=== PATIENT | male | born 1940 | race Caucasian/White ===

== ENCOUNTER 2024-07-19 07:18 | Inpatient (IN) ==
--- NOTE | 2024-07-04 13:01 | Anesthesiology Consultation ---
Date of Service July 04, 2024 Assessment & Plan (1) Encounter for pre-operative examination: Chart Review Chart Review: Acceptable Risk for Surgery History Surgery Operation Date: 07/19/24 07:15 Proposed Procedures p Anorectal Exam Under Anesthesia, Hemorrhoidectomy - Helder Rivera DO, FACS Height/Weight Height: 5 ft 9 in Weight: 90.718 kg Allergies Allergy/AdvReac Type Severity Reaction Status Date / Time No Known Allergies Allergy Verified 07/01/24 13:37 Medications Home Medications Medication Instructions Recorded Confirmed Last Taken latanoprost 0.005 % eye drops 1 drp ophthalmic (eye) DAILY 06/22/23 07/01/24 Unknown timolol maleate 0.25 % eye drops 1 drp ophthalmic (eye) BID 06/22/23 07/01/24 Unknown hydrocortisone 2.5 % topical cream 1 applic [place] DAILY PRN hemorrhoids 03/03/24 07/01/24 Unknown with perineal applicator #30 grams hydrocortisone acetate 25 mg 25 mg [place] DAILY #24 ea 03/17/24 07/01/24 Unknown rectal suppository (Anusol-HC) Past Medical History Medical History (Updated 07/04/24 @ 13:01 by Ranjit Hull MD) Anemia Arthritis Glaucoma History of skin cancer ears and side of face AND RESECTED Past Family History Family History Father Myocardial infarction Heart disease Sister Colorectal cancer Mother Diabetes Hypertension Other Family history of diabetes mellitus in mother Denies family history of Ovarian cancer Prostate cancer Breast cancer Lung cancer Past Surgical History Surgical History Hx of bilateral cataract extraction History of hernia surgery Patient reports is was left groin, 5-8 years ago Social History Smoking Status: Current some day smoker tobacco type: cigars Smoking cigarettes per day: 1 CIGAR ON SUNDAYS- advised Do You Dip or Chew Tobacco: No Hx Alcohol Use: No Hx Substance Use: No substance use type: does not use Testing Laboratory Results Laboratory Tests 07/01/24 07:47 Hgb 8.4 L Plt Count 299 Potassium 3.7 Creatinine 0.93 Electrocardiogram Date: 07/01/24 Findings: + NSR @ (62)
--- NOTE | 2024-07-19 07:27 | History & Physical Bridge Note ---
Date of Service July 19, 2024 History & Physical Bridge Note I have examined the patient, reviewed the History & Physical and in the interval since the performance of the History & Physical I have noted the following changes of clinical significance: no changes noted
[2024-07-19] MEDS ORDERED: LIDOCAINE 2% 2 ML VIAL/AMP(20MG/ML) INFIL ONE (07:42)
[2024-07-19] MEDS ORDERED: PROPOFOL IV EMULSION 10 MG/ML 20 ML VIAL IV ONE (07:42)
[2024-07-19] MEDS ORDERED: fentaNYL citrate PF 100 MCG/2 ML VIAL ONE (07:42)
[2024-07-19] MEDS: LACTATED RINGER'S 1,000 ML IV SCH (08:02)
[2024-07-19] MEDS: cefOXitin 2,000 MG in DEXTROSE 5 % MINI-B 50 ML IV SCH (09:01)
[2024-07-19] MEDS ORDERED: ONDANSETRON INJ 2 MG/ML 2 ML VIAL IV PRN ×3 (09:24→12:13)
[2024-07-19] MEDS ORDERED: oxyCODONE HCL IR 5 MG TAB (IMMEDIATE RELEASE) PO PRN ×2 (09:24)
[2024-07-19] MEDS ORDERED: MoRPHine SULFATE 4 MG/ML 1 ML CARP\\VIAL IV PRN (09:24)
[2024-07-19] MEDS ORDERED: MoRPHine SULFATE 2 MG/ML CARP IV PRN (09:24)
[2024-07-19] MEDS ORDERED: ACETAMINOPHEN 325 MG TAB PO PRN ×2 (09:24→12:13)
[2024-07-19] MEDS ORDERED: ONDANSETRON INJ 2 MG/ML 2 ML VIAL ONE (09:36)
[2024-07-19] MEDS: LIDOCAINE 2% JELLY 5 ML TUBE EXT ONE (09:36)
[2024-07-19] MEDS: GELATIN SPONGE SZ 100 ONE (09:36)
[2024-07-19] MEDS: LIDOCAINE 1%/EPINEPHRINE 1:100,000 50 ML VIAL ONE (09:43)
[2024-07-19] MEDS: BUPIVACAINE LIPOSOME 1.3% 266 MG/20 ML VIAL ONE (09:43)
--- NOTE | 2024-07-19 09:51 | Operative Report ---
PG Post Operative Report Pre & Post Diagnosis Operation Date: 07/19/24 08:25 Pre-Op Diagnosis: Internal and External Thrombosed Hemorrhoids Post-Op Diagnosis: Internal and External Thrombosed Hemorrhoids, circumferential rectal mass I identified the patient and participated in the time-out.: Yes Procedure Operation Date: 07/19/24 08:25 Actual Procedures p Anorectal Exam Under Anesthesia(Not Applicable) - Helder Rivera DO, FACS Surgeon Helder Rivera DO, CHITO Basket Braider Urmila Beckett Estimated Blood Loss 5 Findings Consistent with Post-Op Diagnosis Large mixed internal and external hemorrhoid. Digital rectal exam revealed redundant and rectal tissue and hemorrhoids. Palpable mass just to the distal end of my finger, appears to be circumferential and low rectal. Unable to adequately visualize to get a biopsy. Specimens None Anesthesia Type General Complications none Disposition Accompanied Patient To Recovery: No Disposition: Recovery Room Indications 84-year-old male presented to the clinic with complaints of hemorrhoid. Given having constipation over the past several months progressively worsening. He had a visible mixed internal and external hemorrhoid on external exam but was unable to tolerate anoscopy due to pain. Plan for anorectal exam under anesthesia, hemorrhoidectomy. The risks of the procedure were discussed, all questions were answered, and the patient agreed to proceed with surgery as planned. Description of Procedure The patient was properly identified, consented, and taken to the operating room where he was placed in the supine position. General endotracheal anesthesia was induced. The patient was then placed in high lithotomy position. SCDs and a safety belt were placed. The patient's anus and buttocks were prepped and draped in the standard sterile fashion. Surgical timeout was performed and all parties were in agreement that this was the correct patient and procedure to be performed and we continued as planned. The external anal exam revealed a large mixed internal and external hemorrhoid on the right. Digital rectal exam revealed redundant anorectal tissue and hemorrhoidal tissue. At the distal end of my finger approximately 7 cm into the rectum, there was a palpable mass. This was firm and appeared to be circumferential. I was able to feel what appears to be the lumen of the colon which was quite narrow. Anoscope and bivalves were inserted and the exam revealed mixed internal and external hemorrhoids, worse on the right. At times I was able to partially visualize the mass but due to the significant redundant tissue was unable to clearly visualize it. I was unable to perform a biopsy. At this point surgery was ceased and Exparel was injected. Anesthesia was ceased, the patient was transferred to the PACU for recovery in stable condition. All sponge, instrument, needle counts were correct at the conclusion of the procedure. The patient tolerated the procedure well. The physicians educational program assistant was present and scrubbed for the entire the case. She was critical in positioning the patient, prepping and draping, retraction and exposure and placement of the dressings. I attest to the content of the Intraoperative Record and any orders documented therein. Any exceptions are noted below.
[2024-07-19] MEDS ORDERED: ePHEDrine sulfate 50 MG/ML AMP ONE (09:57)
--- NOTE | 2024-07-19 10:02 | Communication Note ---
Date of Service: July 19, 2024 Patient underwent anorectal exam under anesthesia for planned hemorrhoidectomy. During the exam there was a palpable circumferential firm mass in the mid to distal rectum. I was unable to visualize this or biopsy it. After discussion with the son, we agreed that the best course of action would be to admit him for the workup. Plan on admitting him to the medicine service, get a CT scan of his chest abdomen and pelvis with oral and IV contrast, and consult GI for colonoscopy in the next day or 2. Based on the location of this tumor he would likely need neoadjuvant chemoradiation, we will await the full workup. If he were to need surgery, as this is quite a low tumor, I would recommend colorectal surgery at a tertiary center. Surgery will follow
[2024-07-19] MEDS ORDERED: PROMETHAZINE HCL 6.25 MG in SODIUM CHLORIDE 0.9% 50 ML IV PRN (10:03)
[2024-07-19] MEDS ORDERED: ATROPINE SULFATE 0.1 MG/ML 10ML SYR IV PRN (10:03)
[2024-07-19] MEDS ORDERED: fentaNYL citrate PF 100 MCG/2 ML VIAL IV PRN (10:03)
[2024-07-19] MEDS ORDERED: HYDROmorphone INJ 2 MG/ML SYR/VIAL IV PRN (10:03)
[2024-07-19] MEDS ORDERED: ePHEDrine sulfate 50 MG/ML AMP IV PRN (10:03)
--- NOTE | 2024-07-19 11:13 | History & Physical Report ---
Date of Service July 19, 2024 Assessment & Plan (1) Rectal mass: Plan: 84yo male who presented today for elective rectal exam under anesthesia along with planned hemorrhoidectomy due to 6 months of bothersome rectal symptoms. During the exam today by Dr Rivera a firm rectal mass was palpated. Dr Rivera canceled the hemorrhoidectomy and advised hospital admission for work-up & Rx of the rectal mass. There is high likelihood that the rectal mass is rectal cancer. Patient has never had a colonoscopy. His sister had colon cancer ~5 years ago. Plan - * admit to med/surg * morphine prn for severe pain * anusol cream TID for hemorrhoids * lidocaine jelly prn adjunctive pain relief * clear liquid diet * consult GI - will need flex sig or full colonoscopy for diagnosis/biopsy; appreciate their assistance * CEA has been sent * CT chest/abd/pelvis with contrast ordered by gen surg team to look for distant mets/staging * will order basal fluids once BMP results are back (2) Microcytic anemia: Plan: hemoglobin was 8.4 in June 2024 MCV was microcytic in light of #1 likely has severe iron deficiency check Fe studies consider IV venofer while here recheck CBC for stability (3) Hemorrhoids: Plan: internal & external but has rectal mass on rectal exam under anesthesia today will order anusol cream TID and lidocaine jelly prn along with morphine for his severe rectal pain (4) Family history of colon cancer: Plan: sister (5) Glaucoma, bilateral: Plan: cont latanoprost drops to both eyes daily cont timolol drops to both eyes daily Plan DVT proph - SCDs for now; defer on chemical means due to BRBPR, anemia, and need for additional procedures care d/w Dr Rivera from [facility] d/w [facility] via [place] correspondence History of Present Illness Chief Complaint: rectal pain, BRBPR Primary Care Provider: Ranjit Barone, DO Very pleasant 84yo male with history of glaucoma & skin cancer of the face who presented for elective anorectal exam under anesthesia & hemorrhoidectomy today with Dr Mitchell Rivera. Patient reports he has had various rectal symptoms for about 6 months, then developed intermittent BRBPR and mucous via his rectum about 3-4 months ago. He states he has had mild rectal discomfort since 2023, and then within the last 2 weeks his pain has been so severe he could not sleep at night. Bowel movements have been irregular, and he has been taking an OTC stool softener to help with such. Bowel movements have been about every other day. He has a feeling of incomplete evacuation - "like something is stuck there" - following his bowel movements. In February 2024 he was seen by his PCP's office for hemorrhoids and was instructed to use anusol cream for such. In May 2024 he was then referred to general surgery for the hemorrhoids due to ongoing bothersome rectal symptoms. June [address] Rivera who palpated internal & external hemorrhoids and recommended the exam under anesthesia to evaluate for rectal ma ss/tumor and to treat the hemorrhoids. Patient denies any recent change in appetite. No weight loss. No nausea/emesis/dysphagia/abdominal pain. 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 During today's exam under anesthesia in preparation for hemorrhoidectomy Dr Rivera palpated a firm rectal mass in the mid to distal rectum but visualization was not possible for biopsy. His surgery was then canceled and Dr Rivera contacted our team to admit Mr Orourke for further work-up. Allergies Allergy/AdvReac Type Severity Reaction Status Date / Time No Known Allergies Allergy Verified 07/19/24 07:40 Home Medications Medication Instructions Recorded Confirmed Type latanoprost 0.005 % eye drops 1 drp ophthalmic (eye) DAILY 06/22/23 07/19/24 History timolol maleate 0.25 % eye drops 1 drp ophthalmic (eye) BID 06/22/23 07/19/24 History hydrocortisone 2.5 % topical cream 1 applic [place] DAILY PRN hemorrhoids 03/03/24 07/19/24 Rx with perineal applicator #30 grams hydrocortisone acetate 25 mg 25 mg [place] DAILY #24 ea 03/17/24 07/19/24 Rx rectal suppository (Anusol-HC) Past Med/Surg History Problem List (Updated 07/19/24 @ 11:23 by Hudson Duran MD) Microcytic anemia Glaucoma, bilateral Family history of colon cancer Hemorrhoids Rectal mass Rectal burning Medicare annual wellness visit, initial Medical History Internal and external thrombosed hemorrhoids Anemia Arthritis Glaucoma History of skin cancer ears and side of face AND RESECTED Surgical History Hx of bilateral cataract extraction History of hernia surgery Patient reports is was left groin, 5-8 years ago Family History Father Myocardial infarction Heart disease Sister Colorectal cancer Mother Diabetes Hypertension Other Family history of diabetes mellitus in mother Denies family history of Ovarian cancer Prostate cancer Breast cancer Lung cancer Social History (Updated 07/19/24 @ 11:17 by Hudson Duran MD) Smoking Status: Current some day smoker Tobacco Type: Cigars Age Started Using Tobacco: 20; Age Quit Using Tobacco: 40; Cigarettes Per Day: 1 CIGAR ON SUNDAYS- ; Second Hand Exposure: No; Do You Dip or Chew Tobacco: No; Hx Alcohol Use: No Hx Substance Use: No Preferred Language: Uzbek Communication Ability: Effective Visual Impairment: No Limitations Hearing Ability: Normal Mineralogy Professor Required: No Beliefs That Will Affect Care: None marital status: / Current Living Situation: Alone Current Living Situation Comment: 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 occupational status: retired current occupation: [employer] How many Children do You have: 1 How many Children do You have Comment: Had two children, one of MVA at 32 Feels Safe at Home: Yes Childhood Exposure to Second-Hand Smoke: No Diet: regular caffeine: Yes Dental Care, Regularly: No Physical Activity Frequency: Daily Physical Activity Frequency Comment: farm work Seatbelt Use: always Sunscreen Use: No Assistive Devices: Glasses Review of Systems Review of Systems: gen - no fevers or chills; good appetite; no recent weight loss eyes - no recent changes in vision HENT - no URI symptoms; no dysphagia CV - no chest pains or edema pulm - no dyspnea or MERRILL; no cough GI - no N/V/abd pain; see HPI for other GI symptoms - no LUTS musculo - denies specific joint pains endo - no diabetes neuro - no headaches; left arm paresthesias extending from just superior to L elbow to the L wrist region skin - no rash; he denies seeing pallor Physical Exam Physical Exam: gen - very pleasant, NAD, awake/alert eyes - PERRL, nonicteric sclera, lens implants b/l HENT - MM slightly dry neck - no obvious pathologic lymphadenopathy; anterior neck - either small submental lymph node vs cyst vs other heart - RRR, s1 s2, no murmur lungs - CTA b/l, no rales abd - soft NT ND BS+; no HSM rectal - deferred ext - no edema vascular - pulses b/l feet 2+ psych - a/o x 3 neuro - strength 5/5 x 4 exts; DTRs 2+ b/l upper & lower exts skin - no rash; generalized pallor Results & Data Results & Data Vital Signs (Past 12 Hours) Vital Signs Temp Pulse Pulse Resp BP Pulse Ox O2 Del Method 07/19/24 11:00 56 L 17 152/73 H 97 Room Air 07/19/24 10:45 36.4 C L 59 L 23 160/72 H 100 Room Air 07/19/24 10:30 59 L 23 148/69 H 96 Room Air 07/19/24 10:20 61 18 120/93 96 Room Air 07/19/24 10:10 77 17 121/69 100 Oxymask 07/19/24 10:00 54 L 13 113/58 L 100 Oxymask 07/19/24 09:54 36.6 C 52 L 14 111/61 99 Oxymask 07/19/24 07:44 36.6 C 63 20 166/68 H 97 Room Air O2 Flow Rate 07/19/24 11:00 07/19/24 10:45 07/19/24 10:30 07/19/24 10:20 07/19/24 10:10 6 07/19/24 10:00 6 07/19/24 09:54 6 07/19/24 07:44 Code Status & VTE Plan Code Status full code VTE Prophylaxis Plan VTE Prophylaxis will be ordered: Yes PG Care Time/CCT Total # of Minutes Spent Total Time Spent with Patient: Total time spent is greater than 50% in coordination of care (as documented) at patient's floor/unit and/or counseling patient: Coding Level of Care Code 77157 INT INP/OBS CARE 2/55MIN Diagnoses Rectal mass K62.89 Microcytic anemia D50.9 Hemorrhoids K64.9 Family history of colon cancer Z80.0 Glaucoma, bilateral H40.9
--- NOTE | 2024-07-19 11:24 | Anesthesiology Progress Note ---
Date of Service July 19, 2024 Anesthesia Post Procedure Vital Signs Vital Signs: Temp Pulse Pulse Resp BP Pulse Ox O2 Del Method 07/19/24 11:15 58 L 18 123/83 98 Room Air 07/19/24 11:00 56 L 17 152/73 H 97 Room Air 07/19/24 10:45 36.4 C L 59 L 23 160/72 H 100 Room Air 07/19/24 10:30 59 L 23 148/69 H 96 Room Air 07/19/24 10:20 61 18 120/93 96 Room Air 07/19/24 10:10 77 17 121/69 100 Oxymask 07/19/24 10:00 54 L 13 113/58 L 100 Oxymask 07/19/24 09:54 36.6 C 52 L 14 111/61 99 Oxymask 07/19/24 07:44 36.6 C 63 20 166/68 H 97 Room Air O2 Flow Rate 07/19/24 11:15 07/19/24 11:00 07/19/24 10:45 07/19/24 10:30 07/19/24 10:20 07/19/24 10:10 6 07/19/24 10:00 6 07/19/24 09:54 6 07/19/24 07:44 Transfer of Care Handoff Completed per policy Notes Mental Status: alert / awake / arousable and participated in evaluation Patient Amnestic to Procedure: Yes Nausea / Vomiting: adequately controlled Pain: adequately controlled Airway Patency, RR, SpO2: stable & adequate BP & HR: stable & adequate Hydration State: stable & adequate Anesthetic Complications: no major complications apparent
[2024-07-19 12:04] LABS: Basophils # (auto) 0.06 K/uL (0.00-0.20); Basophils % (auto) 0.9 %; Eosinophils % (auto) 2.9 %; Hematocrit (blood only) 28.1 % (42.0-52.0); Hemoglobin 8.2 g/dl (14.0-18.0); Immature Granulocytes # (auto) 0.01 K/uL (0.01-0.20); Immature Granulocytes % (auto) 0.1 %; Lymphocytes # (auto) 1.91 K/uL (1.20-3.40); Lymphocytes % (auto) 27.9 %; Mean Corpuscular Hemoglobin 20.5 pg (25.0-34.0); Mean Corpuscular Hgb Conc 29.2 g/dL (32.0-36.0); Mean Corpuscular Volume 70.3 fL (80.0-100.0); Mean Platelet Volume 9.5 fL (9.4-12.4); Monocytes % (auto) 11.7 %; Neutrophils # (auto) 3.86 K/uL (1.40-6.50); Neutrophils % (auto) 56.5 %; Platelet Count 295 K/uL (130-400); RDW Coefficient of Variation 15.9 % (11.5-14.5); RDW Standard Deviation 40.3 fL (36.4-46.3); White Blood Count 6.84 K/ul (4.8-10.8)
[2024-07-19] MEDS ORDERED: LIDOCAINE 2% JELLY 5 ML TUBE EXT PRN (12:13)
[2024-07-19 12:20] LABS: Albumin Level 3.3 gm/dl (3.4-5.0); BUN Creatinine Ratio 13.9 (10-20); Bilirubin,Total 0.7 mg/dl (0.2-1.0); Calcium 8.3 mg/dl (8.6-10.3); Creatinine Clr Calc Pharmacy 62.8 ml/min; Globulin 3.2 gm/dl (2.5-4.0); Magnesium 1.9 mg/dl (1.7-2.4); Potassium 3.7 mmol/L (3.5-5.1); Total Protein 6.5 gm/dl (6.0-8.3)
[2024-07-19 12:38] LABS: Ferritin 5.1 ng/ml (8-388)
--- NOTE | 2024-07-19 12:52 | Gastrointestinal Consultation ---
Date of Consultation July 19, 2024 Assessment & Plan (1) Microcytic anemia: 84 year old male with family history of colon CA in a sibling who is admitted following OP anorectal exam under anesthesia for planned hemorrhoidectomy revealed a palpable circumferential firm mass in the mid to distal rectum, he was found to have a microcytic anemia Await results of CT CAP Will discuss prep and timing of colonoscopy w/ attending I spent a total of 60 minutes on the date of service in review of patient's re cord, and previously obtained information in person and appropriate medical visit, discussion and education of plan, with patient and/or caregiver, placing orders for tests/referral/procedures as medically necessary and documentation of pertinent clinical information in patient's medical records for their visit today. (2) Rectal mass: Supervising Physician Co-Signing Physician Notes I saw and examined this patient with our nurse practitioner and agree with her assessment and plan. CT scan of the abdomen pelvis consistent with large rectal mass consistent with colon cancer. No significant colonic obstruction. Will proceed with colonoscopy in a.m. for biopsies. Hopefully we can traverse the lesion to clear the more proximal colon of any pathology as well. History of Present Illness Reason for Consultation: rectal mass Requesting Physician: Helder Rivera DO, FACS Attending Physician: Helder Rivera DO, FACS History of Present Illness 84 year old male with family history of colon CA in a sibling who is admitted following OP anorectal exam under anesthesia for planned hemorrhoidectomy revealed a palpable circumferential firm mass in the mid to distal rectum - GI was asked to evaluate for colonoscopy. Pt was seen and evaluated, chart reviewed. Planned for CT CAP. Suggests over the last few months he has had issues with constipation, change in bowel habits, rectal pain/discomfort, stool leakage, and discomfort. He has trialed numerous OTC products and prescription s uppositories without relief. Denies abd pain, nausea/vomiting. He does have some reflux which he notes is dietary related. Denies dysphagia. He does not report a weight loss. No fever, chills, CP, SOB. CT CAP pending H&H 8.2/28.1 Iron 13, ferritin 5.1 CEA 3.7 EGD: none Colonoscopy: none Allergies Allergy/AdvReac Type Severity Reaction Status Date / Time No Known Allergies Allergy Verified 07/19/24 07:40 Home Medications Medication Instructions Recorded Confirmed Type latanoprost 0.005 % eye drops 1 drp ophthalmic (eye) DAILY 06/22/23 07/19/24 History timolol maleate 0.25 % eye drops 1 drp ophthalmic (eye) BID 06/22/23 07/19/24 History hydrocortisone 2.5 % topical cream 1 applic [place] DAILY PRN hemorrhoids 03/03/24 07/19/24 Rx with perineal applicator #30 grams hydrocortisone acetate 25 mg 25 mg [place] DAILY #24 ea 03/17/24 07/19/24 Rx rectal suppository (Anusol-HC) Patient History Medical History Internal and external thrombosed hemorrhoids Anemia Arthritis Glaucoma History of skin cancer ears and side of face AND RESECTED Surgical History Hx of bilateral cataract extraction History of hernia surgery Patient reports is was left groin, 5-8 years ago Family History Father Myocardial infarction Heart disease Sister Colorectal cancer Mother Diabetes Hypertension Other Family history of diabetes mellitus in mother Denies family history of Ovarian cancer Prostate cancer Breast cancer Lung cancer Social History (Updated 07/19/24 @ 11:17 by Hudson Duran MD) Smoking Status: Current some day smoker Tobacco Type: Cigars Age Started Using Tobacco: 20; Age Quit Using Tobacco: 40; Cigarettes Per Day: 1 CIGAR ON SUNDAYS- ; Second Hand Exposure: No; Do You Dip or Chew Tobacco: No; Tobacco Cessation Education Requested by Patient: No Hx Alcohol Use: No Hx Substance Use: No Preferred Language: Kiswahili Communication Ability: Effective Visual Impairment: No Limitations Hearing Ability: Normal Rn Progressive Care Required: No Beliefs That Will Affect Care: None marital status: / Current Living Situation: Alone Current Living Situation 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 Physical Exam Constitutional: WD/WN, vitals as above Respiratory: normal respiratory effort, lungs clear to auscultation Cardiovascular: RRR, no murmur, no edema Gastrointestinal (Abdomen): normal bowel sounds, soft, nontender, no hepatosplenomegaly Skin: no rashes, warm and dry Results & Data Vital Signs (Past 12 Hours) Vital Signs Temp Pulse Pulse Resp BP Pulse Ox O2 Del Method 07/19/24 11:30 59 L 16 145/72 H 98 Room Air 07/19/24 11:15 58 L 18 123/83 98 Room Air 07/19/24 11:00 56 L 17 152/73 H 97 Room Air 07/19/24 10:45 97.5 F L 59 L 23 160/72 H 100 Room Air 07/19/24 10:30 59 L 23 148/69 H 96 Room Air 07/19/24 10:20 61 18 120/93 96 Room Air 07/19/24 10:10 77 17 121/69 100 Oxymask 07/19/24 10:00 54 L 13 113/58 L 100 Oxymask 07/19/24 09:54 97.9 F 52 L 14 111/61 99 Oxymask 07/19/24 07:44 97.9 F 63 20 166/68 H 97 Room Air O2 Flow Rate 07/19/24 11:30 07/19/24 11:15 07/19/24 11:00 07/19/24 10:45 07/19/24 10:30 07/19/24 10:20 07/19/24 10:10 6 07/19/24 10:00 6 07/19/24 09:54 6 07/19/24 07:44 Laboratory Results 07/19/24 07/19/24 Range/Units 11:39 10:46 WBC 6.84 (4.8-10.8) K/ul RBC 4.00 L (4.70-6.10) M/uL Hgb 8.2 L (14.0-18.0) g/dl Hct 28.1 L (42.0-52.0) % MCV 70.3 L (80.0-100.0) fL MCH 20.5 L (25.0-34.0) pg MCHC 29.2 L (32.0-36.0) g/dL RDW Std Deviation 40.3 (36.4-46.3) fL RDW Coeff of Bree 15.9 H (11.5-14.5) % Plt Count 295 (130-400) K/uL MPV 9.5 (9.4-12.4) fL Immature Gran % (Auto) 0.1 % Neut % (Auto) 56.5 % Lymph % (Auto) 27.9 % [place] % (Auto) 11.7 % Eos % (Auto) 2.9 % Baso % (Auto) 0.9 % Neut # (Auto) 3.86 (1.40-6.50) K/uL Lymph # (Auto) 1.91 (1.20-3.40) K/uL [place] # (Auto) 0.80 H (0.11-0.59) K/uL Eos # (Auto) 0.20 (0.00-0.50) K/uL Baso # (Auto) 0.06 (0.00-0.20) K/uL Immature Gran # (Auto) 0.01 (0.01-0.20) K/uL Sodium 140 (136-145) mmol/L Potassium 3.7 (3.5-5.1) mmol/L Chloride 109 H (98-107) mmol/L Carbon Dioxide 27 (21-32) mmol/L Anion Gap 4 (3-11) BUN 14 (6-23) mg/dl Creatinine 1.01 (0.6-1.4) mg/dl Est Cr Clr Drug Dosing 62.8 ml/min eGFR 73.33 BUN/Creatinine Ratio 13.9 (10-20) Glucose 95 (70-99(Fasting)) mg/dl Calcium 8.3 L (8.6-10.3) mg/dl Magnesium 1.9 (1.7-2.4) mg/dl Iron 13 L (35-175) mcg/dl TIBC 427 (250-450) mcg/dl Transferrin 305 (200-360) mg/dl Transferrin % Sat 3 L (20-50) % Ferritin 5.1 L (8-388) ng/ml Total Bilirubin 0.7 (0.2-1.0) mg/dl AST 12 L (13-39) U/L ALT 7 (7-52) U/L Alkaline Phosphatase 64 (34-104) U/L Total Protein 6.5 (6.0-8.3) gm/dl Albumin 3.3 L (3.4-5.0) gm/dl Globulin 3.2 (2.5-4.0) gm/dl Albumin/Globulin Ratio 1.0 (0.9-2) Carcinoembryonic Ag 3.7 H (0-2.5) ng/ml PG Care Time/CCT Total # of Minutes Spent Total Time Spent with Patient: Total time spent is greater than 50% in coordination of care (as documented) at patient's floor/unit and/or counseling patient: Coding Level of Care Code 05244 INT INP/OBS CARE 255MIN Diagnoses Microcytic anemia D50.9 Rectal mass K62.89
[2024-07-19] MEDS: OPTIRAY 320 100ml IV ONE (13:08)
--- NOTE | 2024-07-19 13:24 | CT Scan Report ---
ABDOMEN AND PELVIS CT WITH IV AND ORAL CONTRAST CT DOSE: 2216.72 mGy.cm HISTORY: rectal mass TECHNIQUE: Multiaxial CT images of the abdomen and pelvis were performed following the IV administrat ion of 90 cc of Optiray and oral contrast. A dose lowering technique was utilized adhering to the pr inciples of CARLOS. COMPARISON STUDY: None FINDINGS: ABDOMEN: There are gallstones without evidence of acute cholecystitis. Liver, spleen, pancreas, and a drenal glands are unremarkable. There are a few small cysts at the kidneys. There is no hydronephrosi s. There is scattered atherosclerotic calcifications. No abdominal aortic aneurysm. Pelvis: Prostate is enlarged. Urinary bladder is mildly distended with a trabeculated appearance sugg esting chronic bladder outlet obstruction. There is nodular wall thickening at the upper rectum consi stent with given history of rectal mass. The mass significantly narrows the lumen of the rectum. Ther e is moderate retained stool. No bowel in formation or obstruction seen. No free fluid, free air, or abscess. No enlarged adenopathy. Osseous structures: There is severe lumbar degenerative disc disease. There are mild degenerative jaz nges at the hips. There is minimal scoliosis. No acute or suspicious osseous findings. IMPRESSION: 1. Upper rectal mass consistent with given history. No evidence of metastatic disease seen. 2. Otherwise as described. ACT 112: Negative or not required by law. The above report was generated using voice recognition software. It may contain grammatical, syntax o r spelling errors. Electronically signed by: Helder Haq M.D. 07/19/2024 1:21 PM
[2024-07-19] MEDS: TIMOLOL MALEATE 0.5% OP SOLN 5 ML BTL OPB SCH (13:37)
[2024-07-19] MEDS: NSS + 20MEQ KCL 20 MEQ/1,000 ML BAG IV SCH (13:37)
[2024-07-19] MEDS: HYDROCORTISONE HC 2.5% CRM 30GM TUBE EXT SCH (13:41)
--- NOTE | 2024-07-19 13:51 | CT Scan Report ---
CHEST CT WITH CONTRAST HISTORY: Screening study in a patient with reported colon cancer rectal mass TECHNIQUE: Multiaxial CT images of the chest were performed following the IV administration of 90 cc of Optiray. A dose lowering technique was utilized adhering to the principles of ALARA. COMPARISON: CT abdomen and pelvis of same day FINDINGS: No pleural effusion. No lymphadenopathy. Heart is normal in size without pericardial effusi on. Moderate coronary artery calcifications. Atherosclerosis of the thoracic aorta without aneurysm. Unremarkable pulmonary artery. No pneumothorax. Trace left pleural effusion. Mild dependent subsegmental bibasilar atelectasis. Irre gular 7 mm subpleural solid nodule of the right lower lobe on image 166 series 6. Calcific granuloma in the apical segment right upper lobe. Mild distal esophageal wall thickening. Exophytic cyst of the superior pole left kidney. Midthoracic dextroscoliosis. Degenerative changes of the spine and should ers. No destructive bone lesion. IMPRESSION: 1. No acute intrathoracic abnormality or lymphadenopathy of the chest. 2. 7 mm subpleural solid nodule of the right lower lobe. Follow-up guidelines below. 3. Trace left pleural effusion. Please refer to below summary of Fleischner criteria recommendations for follow-up of incidental CT n odules (Niesha Allen, Guidelines for management of small pulmonary nodules detected on CT scans: A sta tement from the Fleischner Society, Radiology 237: [phone].) SOLID NODULES Solitary nodule size: 6-8 mm * Low risk patients: follow-up at 6-12 months, then consider further follow-up at 18-24 months * high risk patients: initial follow-up CT at 6-12 months and then at 18-24 months if no change Note: newly detected indeterminate nodule in persons 35 years of age or older. * Low risk patients: minimal or absent history of smoking and/or other known risk factors * high risk patients: history of smoking or of other known risk factors (e.g. first degree relative with lung cancer, or exposure to asbestos, radon, uranium) * if a nodule up to 8 mm is partly solid or is ground glass further follow-up is required after 24 m onths to exclude possible slow growing adenocarcinoma (KATHERINE) ACT 112: Negative or not required by law. Electronically signed by: Amarjit Corrales M.D. 07/19/2024 1:49 PM
[2024-07-19] MEDS: PANTOprazole 40 MG TAB PO STA (15:42)
[2024-07-19] MEDS: LAVAGE SOLUTION 4000ML PO SCH (17:41)
[2024-07-19] MEDS: LATANOPROST 0.005% OP SOLN 2.5 ML BTL OPB SCH (20:26)
[2024-07-20 06:22] LABS: Hematocrit (blood only) 26.2 % (42.0-52.0); Hemoglobin 7.8 g/dl (14.0-18.0)
[2024-07-20 06:25] LABS: BUN Creatinine Ratio 13.5 (10-20); Magnesium 1.6 mg/dl (1.7-2.4); Potassium 3.5 mmol/L (3.5-5.1)
[2024-07-20] MEDS: PANTOprazole 40 MG TAB PO SCH (07:33)
--- NOTE | 2024-07-20 09:06 | Gastroenterology Progress Note ---
Date of Service July 20, 2024 Assessment & Plan (1) Microcytic anemia: Plan: 84 year old male with family history of colon CA in a sibling who is admitted following OP anorectal exam under anesthesia for planned hemorrhoidectomy revealed a palpable circumferential firm mass in the mid to distal rectum, he was found to have a microcytic anemia. CT CAP reviewedrectal mass - no evidence of metastatic disease seen. Maintain NPO status for endoscopic evaluation today. Will attempt complete colonoscopy but this may be limited to a flex-sig as he is not fully prepped. We appreciate assistance in the management of any serological abnormality and corrections to include: hemoglobin >7, INR <2, platelets >50,000, potassium levels >3.5 but <5.3, and sodium levels within 5 points of the reference range prior to endoscopic evaluation. (2) Rectal mass: Admission and Anticipated Discharge Date Admission Date: July 19, 2024 Supervising Physician Co-Signing Physician Notes I saw and examined this patient with our nurse practitioner and agree with her assessment and plan. Will proceed with colonoscopy Subjective Remains NPO for colonoscopy. Did not complete prep. Does note he has been passing stool, liquid, large volume. Review of Systems Review of Systems: All other findings negative except as noted in HPI. Physical Exam Constitutional: WD/WN, vitals as above Respiratory: normal respiratory effort Cardiovascular: Rate/Rhythm: regular rate Gastrointestinal (Abdomen): normal bowel sounds, soft, nontender, no hepatosplenomegaly Skin: no rashes, warm and dry Results & Data Results & Data Vital Signs (Past 12 Hours) Vital Signs Temp Pulse Resp BP Pulse Ox O2 Del Method 07/20/24 07:55 98.1 F 88 17 153/64 H 93 Room Air 07/19/24 21:31 97.7 F 65 18 168/69 H 100 Room Air PG Care Time/CCT Total # of Minutes Spent Total Time Spent with Patient: Total time spent is greater than 50% in coordination of care (as documented) at patient's floor/unit and/or counseling patient: Coding Level of Care Code None Diagnoses Microcytic anemia D50.9 Rectal mass K62.89
--- NOTE | 2024-07-20 11:46 | Surgery Progress Note ---
Date of Service July 20, 2024 Assessment & Plan (1) Rectal mass: Plan: Patient with new diagnosis of rectal mass, likely adenocarcinoma. Also with chronic anemia likely due to the tumor Colonoscopy today, will await pathology results Pelvic MRI to complete staging Patient will likely need neoadjuvant chemoradiation, will await pathology and discuss at multidisciplinary tumor board If surgery indicated, due to the location of the tumor in his rectum, would recommend colorectal surgery Surgery will follow (2) Family history of colon cancer: (3) Anemia: Admission and Anticipated Discharge Date Admission Date: July 19, 2024 Subjective POD #1 EUA with palpable mass noted, admitted for further workup. CT confirmed the presence of a mass and a CEA is elevated. GI is planning on doing a colonoscopy today and he is tolerated the prep well. Physical Exam Constitutional: WD/WN, vitals as above + obese Gastrointestinal (Abdomen): normal bowel sounds, soft, nontender, no hepatosplenomegaly Results & Data Vital Signs (Past 12 Hours) Vital Signs Temp Pulse Resp BP Pulse Ox O2 Del Method 07/20/24 07:55 36.7 C 88 17 153/64 H 93 Room Air Laboratory Results Laboratory Results - last 24 hr 07/19/24 07/20/24 11:39 05:44 WBC 6.84 RBC 4.00 L Hgb 8.2 L 7.8 L Hct 28.1 L 26.2 L MCV 70.3 L MCH 20.5 L MCHC 29.2 L RDW Std Deviation 40.3 RDW Coeff of Bree 15.9 H Plt Count 295 MPV 9.5 Immature Gran % (Auto) 0.1 Neut % (Auto) 56.5 Lymph % (Auto) 27.9 [place] % (Auto) 11.7 Eos % (Auto) 2.9 Baso % (Auto) 0.9 Neut # (Auto) 3.86 Lymph # (Auto) 1.91 [place] # (Auto) 0.80 H Eos # (Auto) 0.20 Baso # (Auto) 0.06 Immature Gran # (Auto) 0.01 Sodium 140 138 Potassium 3.7 3.5 Chloride 109 H 109 H Carbon Dioxide 27 25 Anion Gap 4 4 BUN 14 14 Creatinine 1.01 1.04 Est Cr Clr Drug Dosing 62.8 61.0 eGFR 73.33 70.80 BUN/Creatinine Ratio 13.9 13.5 Glucose 95 88 Calcium 8.3 L 8.0 L Magnesium 1.9 1.6 L Iron 13 L TIBC 427 Transferrin 305 Transferrin % Sat 3 L Ferritin 5.1 L Total Bilirubin 0.7 AST 12 L ALT 7 Alkaline Phosphatase 64 Total Protein 6.5 Albumin 3.3 L Globulin 3.2 Albumin/Globulin Ratio 1.[address] personally viewed and interpreted and agree with the assessment of a circumferential mass narrowing the lumen of the rectum in the mid to distal rectum. Abdomen/Pelvis CT 07/19/24 10:[address] WITH IV AND ORAL CONTRAST CT DOSE: 2216.72 mGy.cm HISTORY: rectal mass TECHNIQUE: Multiaxial CT images of the abdomen and pelvis were performed following the IV administration of 90 cc of Optiray and oral contrast. A dose lowering technique was utilized adhering to the principles of ALARA. COMPARISON STUDY: None FINDINGS: ABDOMEN: There are gallstones without evidence of acute cholecystitis. Liver, spleen, pancreas, and adrenal glands are unremarkable. There are a few small cysts at the kidneys. There is no hydronephrosis. There is scattered atherosclerotic calcifications. No abdominal aortic aneurysm. Pelvis: Prostate is enlarged. Urinary bladder is mildly distended with a trabeculated appearance suggesting chronic bladder outlet obstruction. There is nodular wall thickening at the upper rectum consistent with given history of rectal mass. The mass significantly narrows the lumen of the rectum. There is moderate retained stool. No bowel in formation or obstruction seen. No free fluid, free air, or abscess. No enlarged adenopathy. Osseous structures: There is severe lumbar degenerative disc disease. There are mild degenerative changes at the hips. There is minimal scoliosis. No acute or suspicious osseous findings. IMPRESSION: 1. Upper rectal mass consistent with given history. No evidence of metastatic disease seen. 2. Otherwise as described. ACT 112: Negative or not required by law. The above report was generated using voice recognition software. It may contain grammatical, syntax or spelling errors. Electronically signed by: Helder Haq M.D. 07/19/2024 1:[address] 07/19/24 10:[address] WITH CONTRAST HISTORY: Screening study in a patient with reported colon cancer rectal mass TECHNIQUE: Multiaxial CT images of the chest were performed following the IV administration of 90 cc of Optiray. A dose lowering technique was utilized adhering to the principles of ALARA. COMPARISON: CT abdomen and pelvis of same day FINDINGS: No pleural effusion. No lymphadenopathy. Heart is normal in size without pericardial effusion. Moderate coronary artery calcifications. Atherosclerosis of the thoracic aorta without aneurysm. Unremarkable pulmonary artery. No pneumothorax. Trace left pleural effusion. Mild dependent subsegmental bibasilar atelectasis. Irregular 7 mm subpleural solid nodule of the right lower lobe on image 166 series 6. Calcific granuloma in the apical segment right upper lobe. Mild distal esophageal wall thickening. Exophytic cyst of the superior pole left kidney. Midthoracic dextroscoliosis. Degenerative changes of the spine and shoulders. No destructive bone lesion. IMPRESSION: 1. No acute intrathoracic abnormality or lymphadenopathy of the chest. 2. 7 mm subpleural solid nodule of the right lower lobe. Follow-up guidelines below. 3. Trace left pleural effusion. Please refer to below summary of Fleischner criteria recommendations for follow- up of incidental CT nodules (Niesha Allen, Guidelines for management of small pulmonary nodules detected on CT scans: A statement from the Fleischner Society, Radiology 237: [phone].) SOLID NODULES Solitary nodule size: 6-8 mm * Low risk patients: follow-up at 6-12 months, then consider further follow-up at 18-24 months * high risk patients: initial follow-up CT at 6-12 months and then at 18-24 months if no change Note: newly detected indeterminate nodule in persons 35 years of age or older. * Low risk patients: minimal or absent history of smoking and/or other known risk factors * high risk patients: history of smoking or of other known risk factors (e.g. first degree relative with lung cancer, or exposure to asbestos, radon, uranium) * if a nodule up to 8 mm is partly solid or is ground glass further follow-up is required after 24 months to exclude possible slow growing adenocarcinoma (KATHERINE) ACT 112: Negative or not required by law. Electronically signed by: Amarjit Corrales M.D. 07/19/2024 1:49 PM PG Care Time/CCT Total # of Minutes Spent Total Time Spent with Patient: Total time spent is greater than 50% in coordination of care (as documented) at patient's floor/unit and/or counseling patient: Coding Level of Care Code 59260 SUB INP/OBS CARE 2/35MIN Diagnoses Rectal mass K62.89 Family history of colon cancer Z80.0 Anemia D64.9
--- NOTE | 2024-07-20 11:57 | Anesthesiology Consultation ---
Date of Service July 20, 2024 Assessment & Plan (1) Encounter for pre-operative examination: Chart Review Chart Review: Acceptable Risk for Surgery and Patient NOT seen in Pre Admission Testing Consults Requested none History Surgery Operation Date: 07/19/24 08:25 Proposed Procedures p Anorectal Exam Under Anesthesia, Hemorrhoidectomy - Helder Rivera DO, FACS Operation Date: 07/20/24 17:00 Proposed Procedures p Colonoscopy Dr. Leon Quintero MD Height/Weight Height: 5 ft 9 in Weight: 97.7 kg Allergies Allergy/AdvReac Type Severity Reaction Status Date / Time No Known Allergies Allergy Verified 07/19/24 07:40 Medications Home Medications Medication Instructions Recorded Confirmed Last Taken latanoprost 0.005 % eye drops 1 drp ophthalmic (eye) DAILY 06/22/23 07/19/24 07/17/24 timolol maleate 0.25 % eye drops 1 drp ophthalmic (eye) BID 06/22/23 07/19/24 07/17/24 hydrocortisone 2.5 % topical cream 1 applic MI DAILY PRN hemorrhoids 03/03/24 07/19/24 07/21/23 with perineal applicator #30 grams hydrocortisone acetate 25 mg 25 mg MI DAILY #24 ea 03/17/24 07/19/24 06/28/24 rectal suppository (Anusol-HC) Active Medications Generic Name Dose Route Start Last Admin Trade Name Freq PRN Reason Stop Dose Admin Hydrocortisone 1 appln 07/19/24 14:00 07/20/24 07:33 Hydrocortisone Hc 2.5% Crm 30gm Tube EXT 08/18/24 13:59 1 appln TID GILLES Administration Potassium Chloride/Sodium Chloride 20 meq in 1,000 mls @ 75 mls/hr 07/19/24 12:45 07/20/24 02:43 Normal Saline W/20 Meq Kcl IV 07/20/24 15:00 75 mls/hr .[id number] GILLES Administration Latanoprost 1 drops 07/19/24 21:00 07/19/24 20:26 Latanoprost 0.005% Op Soln 2.5 Ml Btl OPB 08/18/24 20:59 1 drops HS GILLES Administration Pantoprazole Sodium 40 mg 07/20/24 09:00 07/20/24 07:33 Pantoprazole 40 Mg Tab PO 08/19/24 08:59 40 mg QAM GILLES Administration Polyethylene Glycol/Electrolytes 8 dose 07/19/24 17:00 07/19/24 17:41 Lavage Solution 4000ml PO 08/18/24 16:59 8 dose TODAY@1700 GILLES Administration Timolol Maleate 1 drops 07/19/24 12:30 07/20/24 07:34 Timolol Maleate 0.5% Op Soln 5 Ml Btl OPB 08/18/24 12:29 1 drops QAM GILLES Administration NPO Date Last Intake of Fluids: 07/18/24 Time Last Intake of Fluids: 16:00 Date Last Intake of Solids: 07/18/24 Time Last Intake of Solids: 16:00 Past Medical History Medical History (Updated 07/20/24 @ 11:57 by Gonzalo Robles MD) Rectal mass Internal and external thrombosed hemorrhoids Anemia Arthritis Glaucoma History of skin cancer ears and side of face AND RESECTED Past Family History Family History Father Myocardial infarction Heart disease Sister Colorectal cancer Mother Diabetes Hypertension Other Family history of diabetes mellitus in mother Denies family history of Ovarian cancer Prostate cancer Breast cancer Lung cancer Past Surgical History Surgical History Hx of bilateral cataract extraction History of hernia surgery Patient reports is was left groin, 5-8 years ago Social History Smoking Status: Current some day smoker tobacco type: cigars Smoking cigarettes per day: 1 CIGAR ON SUNDAYS- advised Do You Dip or Chew Tobacco: No Hx Alcohol Use: No Hx Substance Use: No substance use type: does not use Physical Exam Vital Signs Last Vital Signs Temp 36.7 C 07/20/24 07:55 Pulse 88 07/20/24 07:55 Resp 17 07/20/24 07:55 BP 153/64 H 07/20/24 07:55 Pulse Ox 93 07/20/24 07:55 O2 Del Method Room Air 07/20/24 07:55 O2 Flow Rate 6 07/19/24 10:10 Testing Laboratory Results 07/20/24 05:44 07/20/24 05:44 Electrocardiogram Date: 07/01/24 Findings: + NSR @ (62)
--- NOTE | 2024-07-20 13:34 | GI REPORT ---
[facility] Patient: JABARI GURROLA : 1940 Sex at : Male Age: 84 Years Procedure: Colonoscopy Date: 07/20/2024 Attending Physician: Win Quintero MD Referring MD: Helder Rivera Do Indications: - Rectal mass Medications: - Monitored Anesthesia Care Complications: - No immediate complications. Estimated Blood Loss: - Estimated blood loss: None. Procedure: - Prior to the procedure, a History and Physical was performed, and patient medications and allergies were reviewed. The patient's tolerance of previous anesthesia was also reviewed. The risks and benefits of the procedure and the sedation options and risks were discussed with the patient. All questions were answered, and informed consent was obtained. [Anticoagulant Agents] [Days Prior to Procedure]. [ASA Grade]. After reviewing the risks and benefits, the patient was deemed in satisfactory condition to undergo the procedure. - The adult colonoscope was introduced through the anus and advanced to the cecum, identified by appendiceal orifice and ileocecal valve. - The colonoscopy was performed without difficulty. Examination was complete to the cecum - The patient tolerated the procedure well. - The quality of the bowel preparation was [Prep Quality]. - The entire colon was examined. Findings: - The digital rectal exam revealed a rectal mass palpated 0 to 5 cm from the anal verge. - A polypoid, infiltrative and fungating partially obstructing large mass was found in the mid rectum. The mass was circumferential. The mass measured 5 cm (in length). Oozing was present. Biopsies were taken with a cold forceps for histology. - A 30 mm polyp was found in the transverse colon. The polyp was pedunculated. The polyp was removed with a hot snare. Resection was complete, and retrieval was complete. To prevent bleeding after the polypectomy, one hemostatic clip was successfully placed. There was no bleeding at the end of the procedure. - A 10 mm polyp was found in the sigmoid colon. The polyp was sessile. The polyp was removed with a hot snare. Resection was complete, but the polyp tissue was not retrieved. - No other significant abnormalities were identified in a careful examination of the remainder of the colon. Impression: - Rectal mass 0 to 5 cm from the anal verge. - Likely malignant partially obstructing tumor in the mid rectum. Biopsied. - One 30 mm polyp in the transverse colon, removed with a hot snare. Resected and retrieved. Clip was placed. - One 10 mm polyp in the sigmoid colon, removed with a hot snare. Complete resection. Polyp tissue not retrieved. Recommendation: - Await pathology results. - Resume previous diet. - Repeat colonoscopy in 1 year for surveillance based on personal history of colon cancer. Procedure Code(s): - 38687, Colonoscopy, flexible; with removal of tumor(s), polyp(s), or other lesion(s) by snare technique - 61738-05, Colonoscopy, flexible; with biopsy, single or multiple Diagnosis Code(s): - K62.89, Other specified diseases of anus and rectum - D49.0, Neoplasm of unspecified behavior of digestive system - K56.690, Other partial intestinal obstruction - D12.3, Benign neoplasm of transverse colon (hepatic flexure or splenic flexure) - D12.5, Benign neoplasm of sigmoid colon CPT(R) - 2022 copyright [employer]. All Rights Reserved. The CPT codes, CCI edits and ICD codes generated are intended as suggestions and were generated based on input data. These codes are preliminary and upon third steel pourer review may be revised to meet current compliance and payer requirements. The provider is responsible for the final determination of appropriate codes, and modifiers. Win Quintero MD This document has been electronically signed. Note Initiated:07/20/2024 Note Completed:07/20/2024 1:34 PM [email or web address]\[email or web address]\[id number]
--- NOTE | 2024-07-20 14:17 | Anesthesiology Progress Note ---
Date of Service July 20, 2024 Anesthesia Post Procedure Vital Signs Vital Signs: Temp Pulse Pulse Resp BP BP Pulse Ox 07/20/24 14:12 36.6 C 66 20 136/70 99 07/20/24 13:45 65 16 121/50 L 97 07/20/24 13:29 63 16 116/45 L 96 07/20/24 13:14 67 14 107/47 L 96 07/20/24 12:00 36.9 C 70 18 139/51 L 99 07/20/24 07:55 36.7 C 88 17 153/64 H 93 07/19/24 21:31 36.5 C 65 18 168/69 H 100 O2 Del Method 07/20/24 14:12 Room Air 07/20/24 13:45 Room Air 07/20/24 13:29 Room Air 07/20/24 13:14 Room Air 07/20/24 12:00 Room Air 07/20/24 07:55 Room Air 07/19/24 21:31 Room Air Pain Intensity Rectal: Pain Intensity: 5 Transfer of Care Handoff Completed per policy Notes Mental Status: alert / awake / arousable and participated in evaluation Patient Amnestic to Procedure: Yes Nausea / Vomiting: adequately controlled Pain: adequately controlled Airway Patency, RR, SpO2: stable & adequate BP & HR: stable & adequate Hydration State: stable & adequate Anesthetic Complications: no major complications apparent and Pt Satisfied with anesthetic care
--- NOTE | 2024-07-20 14:50 | Hospitalist Progress Note ---
Date of Service July 20, 2024 Assessment & Plan (1) Rectal mass: Plan: 84yo male who presented today for elective rectal exam under anesthesia along with planned hemorrhoidectomy due to 6 months of bothersome rectal symptoms. During the exam today by Dr Rivera a firm rectal mass was palpated. Dr Rivera canceled the hemorrhoidectomy and advised hospital admission for work-up & Rx of the rectal mass. There is high likelihood that the rectal mass is rectal cancer. Patient has never had a colonoscopy. His sister had colon cancer ~5 years ago. Plan - * admit to med/surg * morphine prn for severe pain * anusol cream TID for hemorrhoids * lidocaine jelly prn adjunctive pain relief * clear liquid diet * consult GI - will need flex sig or full colonoscopy for diagnosis/biopsy; appreciate their assistance * CEA has been sent * CT chest/abd/pelvis with contrast ordered by gen surg team to look for distant mets/staging * will order basal fluids once BMP results are back 3/5 GI consult, c-scope this morning Path pending CEA returned, elevatrd 3.7 Iron studies LOW- Venofer 300mg IV MRI pelvis for screening, outpt f/u planned Mag 1.6, 1gm IV ordered Plan ref to [facility] in f/u once path back/MRI for treatment (2) Microcytic anemia: Plan: hemoglobin was 8.4 in June 2024 MCV was microcytic in light of #1 likely has severe iron deficiency check Fe studies consider IV venofer while here recheck CBC for stability (3) Hemorrhoids: Plan: internal & external but has rectal mass on rectal exam under anesthesia today will order anusol cream TID and lidocaine jelly prn along with morphine for his severe rectal pain (4) Family history of colon cancer: Plan: sister (5) Glaucoma, bilateral: Plan: cont latanoprost drops to both eyes daily cont timolol drops to both eyes daily Plan DVT proph - SCDs for now; defer on chemical means due to BRBPR, anemia, and need for additional procedures care d/w Dr Rivera from [facility] care d/w [facility] via [place] correspondence Admission and Anticipated Discharge Date Admission Date: July 19, 2024 Subjective Eval this afternoon, somehow didn't get on list. Results & Data Results & Data Vital Signs (Past 12 Hours) Vital Signs Temp Pulse Pulse Resp BP BP Pulse Ox 07/20/24 14:12 36.6 C 66 20 136/70 99 07/20/24 13:45 65 16 121/50 L 97 07/20/24 13:29 63 16 116/45 L 96 07/20/24 13:14 67 14 107/47 L 96 07/20/24 12:00 36.9 C 70 18 139/51 L 99 07/20/24 07:55 36.7 C 88 17 153/64 H 93 O2 Del Method 07/20/24 14:12 Room Air 07/20/24 13:45 Room Air 07/20/24 13:29 Room Air 07/20/24 13:14 Room Air 07/20/24 12:00 Room Air 07/20/24 07:55 Room Air Laboratory Results 07/20/24 05:44 07/20/24 05:44 Iron 13, TIBC 427, Transferrin 305, Transferrin % sat 3, ferritin 5.1 Mag 1.6 Diagnostic Findings Abdomen/Pelvis CT 07/19/24 10:[address] WITH IV AND ORAL CONTRAST CT DOSE: 2216.72 mGy.cm HISTORY: rectal mass TECHNIQUE: Multiaxial CT images of the abdomen and pelvis were performed following the IV administration of 90 cc of Optiray and oral contrast. A dose lowering technique was utilized adhering to the principles of ALARA. COMPARISON STUDY: None FINDINGS: ABDOMEN: There are gallstones without evidence of acute cholecystitis. Liver, spleen, pancreas, and adrenal glands are unremarkable. There are a few small cysts at the kidneys. There is no hydronephrosis. There is scattered atherosclerotic calcifications. No abdominal aortic aneurysm. Pelvis: Prostate is enlarged. Urinary bladder is mildly distended with a trabeculated appearance suggesting chronic bladder outlet obstruction. There is nodular wall thickening at the upper rectum consistent with given history of rectal mass. The mass significantly narrows the lumen of the rectum. There is moderate retained stool. No bowel in formation or obstruction seen. No free fluid, free air, or abscess. No enlarged adenopathy. Osseous structures: There is severe lumbar degenerative disc disease. There are mild degenerative changes at the hips. There is minimal scoliosis. No acute or suspicious osseous findings. IMPRESSION: 1. Upper rectal mass consistent with given history. No evidence of metastatic disease seen. 2. Otherwise as described. ACT 112: Negative or not required by law. The above report was generated using voice recognition software. It may contain grammatical, syntax or spelling errors. Electronically signed by: Helder Haq M.D. 07/19/2024 1:[address] 07/19/24 10:[address] WITH CONTRAST HISTORY: Screening study in a patient with reported colon cancer rectal mass TECHNIQUE: Multiaxial CT images of the chest were performed following the IV administration of 90 cc of Optiray. A dose lowering technique was utilized adhering to the principles of ALARA. COMPARISON: CT abdomen and pelvis of same day FINDINGS: No pleural effusion. No lymphadenopathy. Heart is normal in size without pericardial effusion. Moderate coronary artery calcifications. Atherosclerosis of the thoracic aorta without aneurysm. Unremarkable pulmonary artery. No pneumothorax. Trace left pleural effusion. Mild dependent subsegmental bibasilar atelectasis. Irregular 7 mm subpleural solid nodule of the right lower lobe on image 166 series 6. Calcific granuloma in the apical segment right upper lobe. Mild distal esophageal wall thickening. Exophytic cyst of the superior pole left kidney. Midthoracic dextroscoliosis. Degenerative changes of the spine and shoulders. No destructive bone lesion. IMPRESSION: 1. No acute intrathoracic abnormality or lymphadenopathy of the chest. 2. 7 mm subpleural solid nodule of the right lower lobe. Follow-up guidelines below. 3. Trace left pleural effusion. Please refer to below summary of Fleischner criteria recommendations for follow- up of incidental CT nodules (Niesha Allen, Guidelines for management of small pulmonary nodules detected on CT scans: A statement from the Fleischner Society, Radiology 237: [phone].) SOLID NODULES Solitary nodule size: 6-8 mm * Low risk patients: follow-up at 6-12 months, then consider further follow-up at 18-24 months * high risk patients: initial follow-up CT at 6-12 months and then at 18-24 months if no change Note: newly detected indeterminate nodule in persons 35 years of age or older. * Low risk patients: minimal or absent history of smoking and/or other known risk factors * high risk patients: history of smoking or of other known risk factors (e.g. first degree relative with lung cancer, or exposure to asbestos, radon, uranium) * if a nodule up to 8 mm is partly solid or is ground glass further follow-up is required after 24 months to exclude possible slow growing adenocarcinoma (KATHERINE) ACT 112: Negative or not required by law. Electronically signed by: Amarjit Corrales M.D. 07/19/2024 1:49 PM PG Care Time/CCT Total # of Minutes Spent Total Time Spent with Patient: Total time spent is greater than 50% in coordination of care (as documented) at patient's floor/unit and/or counseling patient: Coding Diagnoses Rectal mass K62.89 Microcytic anemia D50.9 Hemorrhoids K64.9 Family history of colon cancer Z80.0 Glaucoma, bilateral H40.9
[2024-07-20] MEDS: PROPOFOL IV EMULSION 10 MG/ML 20 ML VIAL IV ONE (14:55)
[2024-07-20] MEDS: MAGNESIUM SULFATE / D5W 1 GM/100 ML BAG IV ONE (15:00)
--- NOTE | 2024-07-20 15:17 | Discharge Summary ---
Discharge Summary Date of Service July 20, 2024 Principal Dx & Hospital Course #1 = Principal Diagnosis (1) Rectal mass: 84yo male who presented for elective rectal exam under anesthesia along with planned hemorrhoidectomy due to 6 months of bothersome rectal symptoms however during exam Dr Rivera noted firm rectal mass during palpation and cancelled procedure and advised admission for work-up given high likelihood for rectal cancer given mass and sister w/ colon ca ~5 years ago. Patient NEVER had colonoscopy in the past. - Hgb 8.2 on admission but was 8.4 in Feb (no prior for comparison) CTAP noting Upper rectal mass consistent with given history. No evidence for metastatic disease noted. CT chest w/o acute intrathoracic abn or lymphadenopathy noted for metastatic disease Provided with pain control, anusol cream TID for hemorrhoids and lidocaine jelly along with clear liquid diet and GI consultation and surgery consult and CEA level sent. Protonix once daily for GI proph added. GI provided bowel prep 07/19 and planned for colonoscopy for evaluation. NPO/IVF provided and underwent colonoscopy with Dr Quintero on 07/20 -- C-scope noted "Rectal mass 0 to 5 cm from the anal verge. Likely malignant partially obstructing tumor in the mid rectum. Biopsied. One 30 mm polyp in the transverse colon, removed with a hot snare. Resected and retrieved. Clip was placed. One 10 mm polyp in the sigmoid colon, removed with a hot snare.Complete resection. Polyp tissue not retrieved." CEA returned elevated at 3.7, concerning for underlying malignancy Surgery rec for MRI pelvis for staging which was ordered but given clip w/ endoscopy need to wait 20 days (however GI reporting MR conditional) however patient wanting to go and can be arranged by PCP in follow up in 20 days as discussed. Did note iron studies as below/Venofer 300mg IV provided prior to discharge as well as 1gm IV mag to keep stores replete. Rec to f/u PCP about Venofer and avoided PO iron given risk for constipation. Hgb 7.8 on repeat but was given IVF on admission while NPO and no CP/SOB and hgb above 8.4 in Febuary and suspect ongoing/longerstanding issue Tolerating low fiber diet and wanting to go home. Discussed w/ surgery and GI and ok for discharge. Rec ref to colorectal in follow up as well as pelvic mass and f/u pathology and referral to CCP to be sent by CM navigator for follow up once pathology returned. Per GI, recs miralax once daily to prevent constipation. (2) Microcytic anemia: Hgb 8.4 in June, MCV 70s. Iron studies checked and LOW - Iron 13, TIBC 427, Transferrin 305, Transferrin % sat 3, ferritin 5.1 Venofer 300mg IV prior to dc and rec PCP arranging ongiong Venofer infusions to replete stores. PPI once daily for proph sent but no upper abd pain (3) Hemorrhoids: internal & external but has rectal mass on rectal exam under anesthesia today will order anusol cream TID and lidocaine jelly prn along with morphine for his severe rectal pain - per GI/no need to continue at dc (4) Family history of colon cancer: sister as outlined ~5yrs ago f/u pathology, Venofer IV as above and colorectal surgery ref in f/u recommended per surgeon inpatient (5) Glaucoma, bilateral: cont latanoprost drops to both eyes daily, timolol drops to both eyes daily (6) Iron deficiency anemia: Plan DVT proph - SCDs for now; defer on chemical means due to BRBPR, anemia, and intervention above Discharged home w/ son, outpatient follow up with specialists/oncology and f/u pathology Notes For Next Care Provider Follow up pathology -Ensure referral to CCP for oncology once path/imaging back Need to arrange MRI pelvis in 20 days given clip w/ colonoscopy -Rec referral to colorectal Rec arranging repeat Venofer IV infusion (avoid PO to prevent issues w/ constipation given mass) Medication Changes From Visit Protonix 40mg PO once daily empirically Admission HPI Per Admitting Provider Very pleasant 84yo male with history of glaucoma & skin cancer of the face who presented for elective anorectal exam under anesthesia & hemorrhoidectomy today with Dr Mitchell Rivera. Patient reports he has had various rectal symptoms for about 6 months, then developed intermittent BRBPR and mucous via his rectum about 3-4 months ago. He states he has had mild rectal discomfort since 2023, and then within the last 2 weeks his pain has been so severe he could not sleep at night. Bowel movements have been irregular, and he has been taking an OTC stool softener to help with such. Bowel movements have been about every other day. He has a feeling of incomplete evacuation - "like something is stuck there" - following his bowel movements. In February 2024 he was seen by his PCP's office for hemorrhoids and was instructed to use anusol cream for such. In May 2024 he was then referred to general surgery for the hemorrhoids due to ongoing bothersome rectal symptoms. June [address] Rivera who palpated internal & external hemorrhoids and recommended the exam under anesthesia to evaluate for rectal mass/tumor and to treat the hemorrhoids. Patient denies any recent change in appetite. No weight loss. No nausea/emesis/dysphagia/abdominal pain. 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 During today's exam under anesthesia in preparation for hemorrhoidectomy Dr Rivera palpated a firm rectal mass in the mid to distal rectum but visualization was not possible for biopsy. His surgery was then canceled and Dr Rivera contacted our team to admit Mr Orourke for further work-up. Admission Exam Per Admitting Provider gen - very pleasant, NAD, awake/alert eyes - PERRL, nonicteric sclera, lens implants b/l HENT - MM slightly dry neck - no obvious pathologic lymphadenopathy; anterior neck - either small submental lymph node vs cyst vs other heart - RRR, s1 s2, no murmur lungs - CTA b/l, no rales abd - soft NT ND BS+; no HSM rectal - deferred ext - no edema vascular - pulses b/l feet 2+ psych - a/o x 3 neuro - strength 5/5 x 4 exts; DTRs 2+ b/l upper & lower exts skin - no rash; generalized pallor Discharge Exam General: 84yo male sitting up in bed, son in room, wanting to go home, NAD, reports feeling well, general pallor HEENT head atraumatic, pupils equal, mmm, trachea midline Resp: even/unlabored, no wheezing/rales, on room air, no tachypnea CV: RRR, no significant m/r/g, NO CALF tenderness, pulses present GI: +BS, +obese, no overt tenderness to palpation , does have some fullness to lower abd ?region of mass, no guarding/rigidity or peritoneal signs : no wright MSK/Neuro: nonfocal, not confused, answering questions appropriately, able to follow commands, ambulating in room Psych: AOx3, cooperative and pleasant with exam Discharge Plan Discharge Items Patient Disposition: Home - Self-Care Reason For Visit: RECTAL MASS, MICROCYTIC ANEMIA Discharge Diagnosis: hemorrhoid with rectal mass Goals: You have been hospitalized for an urgent problem which required surgery. During your stay at [facility], we have made an effort to correct the problem that brought you to the hospital while keeping you as comfortable as possible. Surgery and medications were used to bring your condition under control and your discharge instructions will include directions for any medications you should take after leaving the hospital. Please make sure to follow the advice of your surgeon regarding follow up with the surgeon and with your primary care provider. Activity: As commented below Non-emergency contact: Primary Care Provider, Specialist, Beater Worker Helper and Oncologist Call non-emergency contact if: you have any medication questions, your symptoms worsen, your pain is not controlled, your pain is worsening, your pain is unusual for you and you have a fever Follow-up/Referrals: Helder Rivera DO, FACS [Physician] - 08/02/24 11:45 am (please call to schedule follow up in the office within 2 weeks ) Ranjit Barone DO [Primary Care Provider] - 07/27/24 1:30 pm (With Sejal Chapa PA-C) Diet: Low Fiber Addtl Attending Provider Instructions: You have been hospitalized following potential hemorrhoidectomy for concerns rectal mass. Imaging and GI/Surgery consult were undertaken and colonoscopy was performed and showed rectal mass in rectum with some oozing present and biopsy was taken/pending at discharge. Polyps also removed and sent. CEA level (marker for colon cancer) was obtained and elevated as discussed, concerning for malignancy. Unfortunately, MRI not able to be done for 20 days given clip placed for bleeding with colonoscopy and recommend primary care arrange in the next month and we are sending referral to oncology once results are back to discuss treatment. Your iron studies were VERY low, likely from malignancy/bleeding. We gave IV iron replacement and could consider oral iron but given causes constipation and current rectal mass, I recommend discussing continued infusions with primary care as outpatient. You can continue miralax daily to prevent constipation. Continue LOW FIBER, low residue diet as discussed by gastroenterology. You may also need referral to colorectal surgery depending on MRI results for possible surgery pending what the pathology shows/oncology visit in follow up. Please follow up with primary in the next 7-10 days to monitor your progress since hospitalization and coordination of your care. Please return to the ER with any fever/chills, chest pain, shortness of breath, inability to move your bowels or for any other symptoms concerning for you. It has been a pleasure being a part of the medical team providing for you while you have been in the hospital. Take care! Addtl Radio Equipment Installer Provider Instructions: SPECIAL CARE INSTRUCTIONS: * Avoid constipation. You may purchase a stool softener over the counter such as Colace and take daily to help keep your stools soft. Drink plenty of water. Eat foods with high fiber. Avoid spicy foods. * Diet- you may resume your regular diet Call your doctor if: * Temperature above 101 degrees, nausea/vomiting, fever/chills * Pain not relieved by pain medicine ordered * You have any unanswered questions or concerns [phone]. FOLLOW UP VISIT: If not already scheduled, please call the office for a follow-up visit. Office Pending Studies at Discharge: Yes Studies:: pathology Stand-Alone Forms: [facility] Medications and DC Order Prescriptions: New pantoprazole 40 mg Tablet,Delayed Release (Dr/Ec) 40 mg PO QAM Qty: 30 0RF Continued hydrocortisone acetate [Anusol-HC] 25 mg suppository 25 mg NV DAILY Qty: 24 0RF latanoprost 0.005 % drops 1 drp ophthalmic (eye) DAILY timolol maleate 0.25 % drops 1 drp ophthalmic (eye) BID hydrocortisone 2.5 % cream with perineal applicator 1 applic NV DAILY PRN (Reason: hemorrhoids) Qty: 30 2RF Discharge Orders: Discharge Order (Routine); Ordered 07/20/24 Ordered By: Lurdes Spears Admission Data Admit Date/Time: 07/19/24 11:05 Attending Provider: Sixto Black Admit Provider: Hudson Duran Primary Care Provider: Ranjit Barone Other Providers: Win Quintero I Other Interventions: Discharge Summary Assessment (RN) Last Done: 07/20/24 13:53 Hospital Stay Data Consultations 07/19/24 10:33 Consult Gastroenterology Routine Procedures Performed Operation Date: 07/20/24 17:00 Actual Procedures p Colonoscopy Polypectomy - Win Quintero MD Diagnostic Imagining Performed Abdomen/Pelvis CT 07/19/24 10:[address] WITH IV AND ORAL CONTRAST CT DOSE: 2216.72 mGy.cm HISTORY: rectal mass TECHNIQUE: Multiaxial CT images of the abdomen and pelvis were performed following the IV administration of 90 cc of Optiray and oral contrast. A dose lowering technique was utilized adhering to the principles of ALARA. COMPARISON STUDY: None FINDINGS: ABDOMEN: There are gallstones without evidence of acute cholecystitis. Liver, spleen, pancreas, and adrenal glands are unremarkable. There are a few small cysts at the kidneys. There is no hydronephrosis. There is scattered atherosclerotic calcifications. No abdominal aortic aneurysm. Pelvis: Prostate is enlarged. Urinary bladder is mildly distended with a trabeculated appearance suggesting chronic bladder outlet obstruction. There is nodular wall thickening at the upper rectum consistent with given history of rectal mass. The mass significantly narrows the lumen of the rectum. There is moderate retained stool. No bowel in formation or obstruction seen. No free fluid, free air, or abscess. No enlarged adenopathy. Osseous structures: There is severe lumbar degenerative disc disease. There are mild degenerative changes at the hips. There is minimal scoliosis. No acute or suspicious osseous findings. IMPRESSION: 1. Upper rectal mass consistent with given history. No evidence of metastatic disease seen. 2. Otherwise as described. ACT 112: Negative or not required by law. The above report was generated using voice recognition software. It may contain grammatical, syntax or spelling errors. Electronically signed by: Helder Haq M.D. 07/19/2024 1:[address] 07/19/24 10:[address] WITH CONTRAST HISTORY: Screening study in a patient with reported colon cancer rectal mass TECHNIQUE: Multiaxial CT images of the chest were performed following the IV administration of 90 cc of Optiray. A dose lowering technique was utilized adhering to the principles of ALARA. COMPARISON: CT abdomen and pelvis of same day FINDINGS: No pleural effusion. No lymphadenopathy. Heart is normal in size without pericardial effusion. Moderate coronary artery calcifications. Atherosclerosis of the thoracic aorta without aneurysm. Unremarkable pulmonary artery. No pneumothorax. Trace left pleural effusion. Mild dependent subsegmental bibasilar atelectasis. Irregular 7 mm subpleural solid nodule of the right lower lobe on image 166 series 6. Calcific granuloma in the apical segment right upper lobe. Mild distal esophageal wall thickening. Exophytic cyst of the superior pole left kidney. Midthoracic dextroscoliosis. Degenerative changes of the spine and shoulders. No destructive bone lesion. IMPRESSION: 1. No acute intrathoracic abnormality or lymphadenopathy of the chest. 2. 7 mm subpleural solid nodule of the right lower lobe. Follow-up guidelines below. 3. Trace left pleural effusion. Please refer to below summary of Fleischner criteria recommendations for follow- up of incidental CT nodules (Niesha Allen, Guidelines for management of small pulmonary nodules detected on CT scans: A statement from the Fleischner Society, Radiology 237: [phone].) SOLID NODULES Solitary nodule size: 6-8 mm * Low risk patients: follow-up at 6-12 months, then consider further follow-up at 18-24 months * high risk patients: initial follow-up CT at 6-12 months and then at 18-24 months if no change Note: newly detected indeterminate nodule in persons 35 years of age or older. * Low risk patients: minimal or absent history of smoking and/or other known risk factors * high risk patients: history of smoking or of other known risk factors (e.g. first degree relative with lung cancer, or exposure to asbestos, radon, uranium) * if a nodule up to 8 mm is partly solid or is ground glass further follow-up is required after 24 months to exclude possible slow growing adenocarcinoma (KATHERINE) ACT 112: Negative or not required by law. Electronically signed by: Amarjit Corrales M.D. 07/19/2024 1:49 PM Discharge Instructions Given to Patient (Per Discharging Provider) You have been hospitalized following potential hemorrhoidectomy for concerns rectal mass. Imaging and GI/Surgery consult were undertaken and colonoscopy was performed and showed rectal mass in rectum with some oozing present and biopsy was taken/pending at discharge. Polyps also removed and sent. CEA level (marker for colon cancer) was obtained and elevated as discussed, concerning for malignancy. Unfortunately, MRI not able to be done for 20 days given clip placed for bleeding with colonoscopy and recommend primary care arrange in the next month and we are sending referral to oncology once results are back to discuss treatment. Your iron studies were VERY low, likely from malignancy/bleeding. We gave IV iron replacement and could consider oral iron but given causes constipation and current rectal mass, I recommend discussing continued infusions with primary care as outpatient. You can continue miralax daily to prevent constipation. Continue LOW FIBER, low residue diet as discussed by gastroenterology. You may also need referral to colorectal surgery depending on MRI results for possible surgery pending what the pathology shows/oncology visit in follow up. Please follow up with primary in the next 7-10 days to monitor your progress since hospitalization and coordination of your care. Please return to the ER with any fever/chills, chest pain, shortness of breath, inability to move your bowels or for any other symptoms concerning for you. It has been a pleasure being a part of the medical team providing for you while you have been in the hospital. Take care! Supervising Physician Co-Signing Physician Notes The patient was not seen by me. The chart was reviewed. Case discussed with JEAN CARLOS Loyola. Agree with assessment and plan Total Time Total Time Spent Total Time Spent (In Minutes): 60 Coding Level of Care Code 55885 INP/OBS DISCH >30 MIN Diagnoses Rectal mass K62.89 Microcytic anemia D50.9 Hemorrhoids K64.9 Family history of colon cancer Z80.0 Glaucoma, bilateral H40.9 Iron deficiency anemia D50.9
[2024-07-20] MEDS: IRON SUCROSE 300 MG in SODIUM CHLORIDE 0.9% 250 ML IV ONE (17:03)
[2024-07-20 18:39] VITALS: BP 126/68; PULSE 73; RESP 18; TEMP 98.4; O2SAT 94
--- NOTE | 2024-07-24 05:26 | Coding Query ---
PATHOLOGY To promote full compliance with coding requirements relating to patient care, physician participation is requested in all cases of dry transfer man uncertainty. 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
== END 2024-07-20 18:58 | disposition home or self-care (01) | DRG 394 ==
LOC: ASU 07:18 → 3W 11:05 → SUATTDRO 11:05